=== PATIENT | female | born 2000 | race African-American/Black ===

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

== ENCOUNTER 2020-02-12 19:10 | Emergency (ER) | payer OTHER ==
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
[2020-02-12 19:34] VITALS: BP 129/63; PULSE 96; TEMP 98.2; BMI 24.4
--- NOTE | 2020-02-12 20:01 | PDOC ---
History of Present Illness - General Chief Complaint: Pain Stated Complaint: RIGHT WRIST PAIN Time Seen by Provider: 02/12/20 19:17 History Source: Patient Exam Limitations: No Limitations - History of Present Illness Initial Comments: 02/12/20 19:53 Patient is a 19-year-old female with history of scoliosis with repair rods and screws here with complaints of right wrist pain and swelling over the wrist x1 week. 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 Thinks that she might have sprained her ankle during those times. Yesterday she was attempting to push herself up from the bed and hyperextended the wrist. Now has pain 6/10 and for the past 2 days has noticed a small swelling to the left breast dorsally. States she only has pain with movement or palpation.. PMD: Dr Batres PMHX: as above PSOCHX: KRISTIN FamHx: Noncontributory GENERAL/CONSTITUTIONAL: HEAD, EYES, EARS, NOSE AND THROAT: [No change in vision. No ear pain or discharge. No sore throat.] MUSCULOSKELETAL: [(+) joint or muscle swelling or pain. No neck or back pain.] SKIN AND BREASTS: [No rash or easy bruising.] NEUROLOGIC: [No headache, vertigo, loss of consciousness, or loss of sensation.] PSYCHIATRIC: [No depression or anxiety.] ENDOCRINE: [No increased thirst. No abnormal weight change.] ALLERGIC/IMMUNOLOGIC: [No hives or skin allergy. No latex allergy.] GENERAL: [The patient is awake, alert, and fully oriented, in no acute distress.] HEAD: [Normal with no signs of trauma.] EYES: [Pupils equal, round and reactive to light, extraocular movements intact, sclera anicteric, conjunctiva clear.] EXTREMITIES: [Normal range of motion right wrist, tenderness over dorsal aspect, soft, mobile swelling over the joint space, no edema. No clubbing or cyanosis. No cords, erythema, or tenderness.] NEUROLOGICAL: [Cranial nerves II through XII grossly intact. Normal speech, normal gait.] PSYCH: [Normal mood, normal affect.] SKIN: [Warm, Dry, normal turgor, no rashes or lesions noted.] Past History - Medical History Allergies/Adverse Reactions: Allergies Allergy/AdvReac Type Severity Reaction Status Date / Time No Known Allergies Allergy Verified 02/12/20 19:29 Home Medications: Ambulatory Orders Acyclovir [Zovirax -] 800 mg PO DAILY #70 tablet 06/22/16 COPD: No - Reproductive History Is Patient Now?: No - Psycho-Social/Smoking History Smoking History: Never smoked - Substance Abuse Hx (Audit-C & DAST Scrn) How often the patient has a drink containing alcohol: Monthly or less Number of drinks the patient has on a typical day: 1 or 2 How often the patient has six or more drinks on one occasion: Less than monthly Score: In Men: 4 or > Positive; In Women: 3 or > Positive: 2 Screen Result (Pos requires Nsg. Audit-10AR): Negative In the last yr the pt used illegal drug/Rx for NonMed reason: No Score: Yes response is considered Positive: 0 Screen Result (Positive result requires Nsg. DAST-10): Negative *Physical Exam - Vital Signs Last Vital Signs Temp Pulse Resp BP Pulse Ox 98.2 F 96 H 18 129/63 99 02/12/20 19:26 02/12/20 19:26 02/12/20 19:26 02/12/20 19:26 02/12/20 19:26 ED Treatment Course - RADIOLOGY Radiology Studies Ordered: Category Date Time Status WRIST- RIGHT [RAD] Stat Radiology 02/12/20 19:50 Ordered Medical Decision Making - Medical Decision Making 02/12/20 20:01 Patient is a 19-year-old female with history of scoliosis with repair rods and screws here with complaints of right wrist pain and swelling over the wrist x1 week. 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 Thinks that she might have sprained her ankle during those times. Yesterday she was attempting to push herself up from the bed and hyperextended the wrist. Now has pain 6/10 and for the past 2 days has noticed a small swelling to the left breast dorsally. States she only has pain with movement or palpation. Symptoms consistent with sprain wrist. X-ray wrist right. Dmitry bandage. 02/12/20 20:23 X-ray reviewed notes no fracture. I discussed the physical exam findings, ancillary test results and final diagnoses with the patient. I answered all of the patient's questions. The patient was satisfied with the care received and felt comfortable with the discharge plan and treatment plan. The Patient agrees to follow up with the primary care physician within 24-72 hours. Discharge - Discharge Information Problems reviewed: Yes Clinical Impression/Diagnosis: Ganglion cyst Sprain of wrist, right Qualifiers: Encounter type: initial encounter Qualified Code(s): S63.501A - Unspecified sprain of right wrist, initial encounter Condition: Stable Disposition: HOME - Follow up/Referral Referrals: ON STAFF,NOT [Primary Care Provider] - Inder Lawson MD [Staff Physician] - - Patient Discharge Instructions Patient Printed Discharge Instructions: DI for Wrist Sprain, DI Ganglion Cyst Additional Instructions: Your Discharge Instructions: You must call primary care physician within 24 hours to arrange follow-up. Return to the Emergency Department with any new, persistent or worsening symptoms, for fever, chills, SOB, dizziness or any other concerning changes that may occur. - Post Discharge Activity
== END 2020-02-12 20:35 | disposition home or self-care (01) ==
LOC: JER 19:10 → JERFT 19:10
DX: M67.431 Ganglion, right wrist (principal); S63.501A Unspecified sprain of right wrist, initial encounter
CPT/HCPCS: 73110-TC-RT-FY; 99283-25